=== PATIENT | male | born 1960 | race Two or more races ===

== ENCOUNTER 2018-02-04 10:30 | Emergency (ER) | payer MEDICARE, MEDICAID ==
[~2018-02-04] VITALS: Ht 170.2 cm; Wt 71.0 kg
[~2018-02-04 10:30] MED LIST: ASPI-1009 PO; ESOM20CA PO; HYDR-4069 PO; LANTUS SQ; LOSA25TA96 PO; METO10TA3 PO; NOR5T PO; SIMV20TA5 PO; VIT1TABL50 PO; ZOF4T PO
[2018-02-04 10:44] VITALS: BP 158/101
[2018-02-04] MEDS ORDERED: LIDOcaine 1.5% w/epinephrine 1:200,000 5ml ampul IJ ONE (12:55)
[2018-02-04] MEDS ORDERED: LIDOcaine 1% w/epiNEPHrine 1:200,000 30ml vial IJ ONE (13:00)
[2018-02-04] MEDS ORDERED: CEPH250T PO (13:30)
[2018-02-04] MEDS ORDERED: SULF1TAB49 PO (13:30)
== END 2018-02-04 13:45 | disposition home or self-care (01) ==
LOC: ER 10:31
DX: L02.511 Cutaneous abscess of right hand (principal); I10 Essential (primary) hypertension; J44.9 Chronic obstructive pulmonary disease, unspecified; E11.9 Type 2 diabetes mellitus without complications; Z98.890 Other specified postprocedural states; Z79.82 Long term (current) use of aspirin; Z79.4 Long term (current) use of insulin; Z79.899 Other long term (current) drug therapy
CPT/HCPCS: 26010; 73140; 99283; J3490; 99284

== ENCOUNTER 2018-03-19 12:03 | Outpatient (CLI) | payer MEDICARE, MEDICAID ==
[2018-03-19 11:38] VITALS: BP 134/70
[~2018-03-19 12:03] MED LIST changes: +CEPH250T PO
== END 2018-03-19 12:30 | disposition home or self-care (01) ==
LOC: ORTHO 12:03
PROVIDERS: ATTEND Nurse Practitioner Family
DX: L02.511 Cutaneous abscess of right hand (principal); I10 Essential (primary) hypertension; J44.9 Chronic obstructive pulmonary disease, unspecified; E11.9 Type 2 diabetes mellitus without complications; Z98.890 Other specified postprocedural states; Z79.82 Long term (current) use of aspirin; Z79.4 Long term (current) use of insulin; Z79.899 Other long term (current) drug therapy; Z89.431 Acquired absence of right foot
CPT/HCPCS: 99213

== ENCOUNTER 2018-04-02 09:34 | Emergency (ER) | payer MEDICARE, MEDICAID ==
[~2018-04-02] VITALS: Ht 170.2 cm; Wt 75.0 kg
[2018-04-02 10:08] LABS: BASOPHILS % (AUTO) 0.4 % (0-1); EOSINOPHILS # (AUTO) 0.1 X10'3 (0-0.9); EOSINOPHILS % (AUTO) 1.6 % (0-6); HEMATOCRIT 45.8 % (42.0-52.0); HEMOGLOBIN 15.5 g/dl (14.0-17.9); LYMPHOCYTES # (AUTO) 0.8 X10'3 (1.1-4.8); MEAN CORPUSCULAR HEMOGLOBIN 31.4 PG (27.0-31.0); MEAN CORPUSCULAR HGB CONC 33.8 g/dL (33.0-36.5); MEAN CORPUSCULAR VOLUME 92.7 FL (78-98); MEAN PLATELET VOLUME 9.5 FL (7.4-10.4); MONOCYTES # (AUTO) 0.5 X10'3 (0-0.9); MONOCYTES % (AUTO) 6.2 % (2-12); NEUTROPHILS # (AUTO) 7.1 X10'3 (1.8-7.7); NEUTROPHILS % (AUTO) 82.8 % (42-75); PLATELET COUNT 209 X10'3 (140-440); RED BLOOD COUNT 4.94 X10'6 (4.70-6.10); RED CELL DISTRIBUTION WIDTH 14.3 % (11.5-14.5); WHITE BLOOD COUNT 8.5 X10'3 (4.5-11.0)
[2018-04-02 10:16] LABS: ALANINE AMINOTRANSFERASE 18 U/L (12-78); ALBUMIN/GLOBULIN RATIO 1.1 (1.1-1.5); ALKALINE PHOSPHATASE 84 IU/L (46-116); ANION GAP 12 (8-16); ASPARTATE AMINO TRANSFERASE 18 U/L (10-37); BILIRUBIN,TOTAL 0.7 MG/DL (0.1-1.0); BLOOD UREA NITROGEN 17 MG/DL (7-18); BUN/CREATININE RATIO 13.8 (5.4-32.0); CALCIUM 9.7 MG/DL (8.5-10.1); CHLORIDE 98 MMOL/L (99-107); CREATININE 1.23 MG/DL (0.60-1.10); GLUCOSE 133 MG/DL (70-104); SODIUM 133 MMOL/L (135-145); TOTAL CARBON DIOXIDE 22.9 MMOL/L (24-32); TOTAL PROTEIN 7.5 G/DL (6.4-8.2); eGFR 61 ML/MIN
[2018-04-02 10:21] LABS: PARTIAL THROMBOPLASTIN TIME 25 SECONDS (22-32)
[2018-04-02] MEDS ORDERED: normal saline 1000ML IV soln IVB ONE (12:35)
[2018-04-02] MEDS ORDERED: morphine 4 MG/ML inj SYRINge IV ONE (12:35)
[2018-04-02] MEDS ORDERED: ondansetron/PF 4mg/2ml inj IV ONE (12:35)
[2018-04-02 14:03] VITALS: BP 182/98
[2018-04-02 14:16] LABS: LIPASE 103 U/L (73-393)
[2018-04-02 14:23] LABS: HEMOGLOBIN A1C 5.9 % (4.5-6.2)
[2018-04-02] MEDS ORDERED: ONDA8TAB6 PO (14:41)
[2018-04-02] MEDS ORDERED: PANT-47 PO (14:41)
== END 2018-04-02 15:00 | disposition home or self-care (01) ==
LOC: ER 09:35
DX: R10.13 Epigastric pain (principal); I10 Essential (primary) hypertension; J44.9 Chronic obstructive pulmonary disease, unspecified; R07.89 Other chest pain; R11.2 Nausea with vomiting, unspecified; E11.9 Type 2 diabetes mellitus without complications; F12.10 Cannabis abuse, uncomplicated; Z94.0 Kidney transplant status; Z79.82 Long term (current) use of aspirin; Z79.4 Long term (current) use of insulin
CPT/HCPCS: 36415; 71045; 74176; 80053; 83036; 83690; 84484; 85025; 85610; 85730; 87040; 93005; 96361; 96374; 96375; 99285; J2270; J2405; J7030; 99284

== ENCOUNTER 2018-04-16 08:55 | Outpatient (CLI) | payer MEDICARE, MEDICAID ==
[~2018-04-16] VITALS: Ht 170.2 cm; Wt 73.6 kg
[2018-04-16 08:33] VITALS: BP 137/77
[~2018-04-16 08:55] MED LIST changes: +ONDA8TAB6 PO; +PANT-47 PO
== END 2018-04-16 09:45 | disposition home or self-care (01) ==
LOC: ORTHO 08:55
PROVIDERS: ATTEND Nurse Practitioner Family
DX: S68.11 Complete traumatic metacarpophalangeal amputation of other and unspecified finger (principal); L02.511 Cutaneous abscess of right hand; F12.90 Cannabis use, unspecified, uncomplicated; E11.22 Type 2 diabetes mellitus with diabetic chronic kidney disease; I13.0 Hypertensive heart and chronic kidney disease with heart failure and stage 1 through stage 4 chronic kidney disease, or unspecified chronic kidney disease; N18.9 Chronic kidney disease, unspecified; I50.9 Heart failure, unspecified; J44.9 Chronic obstructive pulmonary disease, unspecified; Z72.89 Other problems related to lifestyle; Z79.82 Long term (current) use of aspirin; V89.2XXD Person injured in unspecified motor-vehicle accident, traffic, subsequent encounter
CPT/HCPCS: 73140; G0463

== ENCOUNTER 2018-05-13 13:10 | Day surgery (SDC) | payer MEDICARE, MEDICAID ==
[2018-05-06 11:03] LABS: BASOPHILS % (AUTO) 0.4 % (0-1); EOSINOPHILS # (AUTO) 0.1 X10'3 (0-0.9); EOSINOPHILS % (AUTO) 0.7 % (0-6); LYMPHOCYTES % (AUTO) 13.3 % (21-51); MEAN CORPUSCULAR HEMOGLOBIN 31.2 PG (27.0-31.0); MEAN CORPUSCULAR HGB CONC 33.6 g/dL (33.0-36.5); MEAN CORPUSCULAR VOLUME 92.7 FL (78-98); MEAN PLATELET VOLUME 8.5 FL (7.4-10.4); MONOCYTES # (AUTO) 0.7 X10'3 (0-0.9); MONOCYTES % (AUTO) 9.2 % (2-12); NEUTROPHILS # (AUTO) 5.6 X10'3 (1.8-7.7); NEUTROPHILS % (AUTO) 76.4 % (42-75); PRE OP HEMATOCRIT 42.1 % (42.0-52.0); PRE OP HEMOGLOBIN 14.2 g/dL (14.0-17.9); PRE OP PLATELET COUNT 273 X10'3 (140-440); RED BLOOD COUNT 4.54 X10'6 (4.70-6.10); RED CELL DISTRIBUTION WIDTH 14.4 % (11.5-14.5)
[2018-05-06 11:14] LABS: ALBUMIN 3.5 G/DL (3.4-5.0); ALKALINE PHOSPHATASE 90 IU/L (46-116); BLOOD UREA NITROGEN 15 MG/DL (7-18); BUN/CREATININE RATIO 12.5 (5.4-32.0); CALCIUM 9.2 MG/DL (8.5-10.1); CHLORIDE 99 MMOL/L (99-107); PRE OP ALT 19 U/L (30-65); PRE OP ANION GAP 8 (8-16); PRE OP AST 16 U/L (10-37); PRE OP BILIRUB, TOTAL 0.3 MG/DL (0.0-1.0); PRE OP GLUCOSE 73 MG/DL (70-104); PRE OP POTASSIUM 4.4 MMOL/L (3.4-5.1); PRE OP SODIUM 135 MMOL/L (135-145); TOTAL CARBON DIOXIDE 27.9 MMOL/L (24-32); eGFR 62 ML/MIN
[~2018-05-13] VITALS: Ht 170.2 cm; Wt 73.6 kg
[~2018-05-13 13:10] MED LIST changes: -CEPH250T PO; +DOCUMENT DATE & TIME OF BETA-BLOCKER PO ONE; -ESOM20CA PO; -HYDR-4069 PO; -LANTUS SQ; +LISI40TA4 PO; -LOSA25TA96 PO; +METO-384 PO; -METO10TA3 PO; +MYCO360T3 PO; -NOR5T PO; -ONDA8TAB6 PO; -PANT-47 PO; +PRED10TA23 PO; +TACR1CAP PO; -VIT1TABL50 PO; -ZOF4T PO; +albuterol 2.5 MG/3 ML nebule NEB ONE; +ceFAZolin 2gm in dextrose, iso 100 ML IV ONE; +famotidine 20mg tablet PO ONE; +normal saline 1000ml 1,000 ML IV SCH; +vancomycin inj 1,500 MG in normal saline 300ml IV soln IV ONE
[2018-05-13 13:30] VITALS: BP 121/70
[2018-05-13] MEDS ORDERED: ceFAZolin 1000mg inj ONE (13:58)
[2018-05-13] MEDS ORDERED: BUPIVAcaine/PF 2.5mg/ml (0.25%) 10ml vial ONE (13:58)
[2018-05-13] MEDS ORDERED: bacitracin 15gm ointment TP ONE (13:58)
[2018-05-13] MEDS ORDERED: ringers solution, lacted 1,000 ML IV SCH ×2 (15:34→16:38)
[2018-05-13] MEDS ORDERED: meperidine/PF 25mg/ml syringe IV PRN ×3 (15:35)
[2018-05-13] MEDS ORDERED: proCHLORperazine 10 MG/2 ml inj IV PRN (15:35)
[2018-05-13] MEDS ORDERED: morphine 4 MG/ML inj SYRINge IV PRN ×4 (15:35→16:40)
[2018-05-13] MEDS ORDERED: ondansetron/PF 4mg/2ml inj IV PRN ×2 (15:35→16:40)
[2018-05-13] MEDS ORDERED: midazolam 2 mg/2 ml injection ONE (16:07)
[2018-05-13] MEDS ORDERED: fentaNYL/PF 50MCG/1 ML 2ML syringe ONE (16:07)
[2018-05-13] MEDS ORDERED: LIDOcaine 1%/PF 5ML 10 MG/ML VIAL ONE (16:08)
[2018-05-13] MEDS ORDERED: propofol inj 20 ML IV ONE (16:17)
[2018-05-13] MEDS ORDERED: hydrALAZINE 20mg/ml inj. IV PRN (16:40)
[2018-05-13] MEDS ORDERED: fentaNYL/PF 50MCG/1 ML 2ML syringe IV PRN ×2 (16:40)
[2018-05-13] MEDS ORDERED: enalaprilat dihydrate 2.5mg/2ml vial IV PRN (16:40)
[2018-05-13 16:55] VITALS: BP 137/82
--- NOTE | 2018-05-13 16:55 | NUR ---
Received from OR via [facility] , accompanied by Anesthesiologist DR PERALES and report given by Anesthesiolgist. PT AWAKE, ALERT AND ORIENTED. DRSG TO RIGHT 5TH FINGER CDI. PT DENIES PAIN AND NAUSEA. ACCU CHECK [id number].
[2018-05-13 17:05] VITALS: BP 147/85
[2018-05-13 17:15] VITALS: BP 144/95
[2018-05-13 17:25] VITALS: BP 148/94
--- NOTE | 2018-05-13 17:45 | NUR ---
PT DISCHARGED TO HOME SAFELY VIA W/C. PT STATES UNDERSTANDING RE: ALL DC INSTRUCTIONS. PT DENIES PAIN AND ANY NEEDS. TOLERATING JUICE AND ABLE TO VOID W/O DIFFICULTY. ALL BELONGINGS W/ PT UPON DC TO HOME.
== END 2018-05-13 17:45 | disposition home or self-care (01) ==
LOC: PAS 13:10
PROVIDERS: ATTEND Orthopaedic Surgery
DX: M20.091 Other deformity of right finger(s) (principal); L02.511 Cutaneous abscess of right hand; Z79.899 Other long term (current) drug therapy; Z79.82 Long term (current) use of aspirin; E11.9 Type 2 diabetes mellitus without complications; I10 Essential (primary) hypertension; J44.9 Chronic obstructive pulmonary disease, unspecified; F32.9 Major depressive disorder, single episode, unspecified; Z94.0 Kidney transplant status; Z94.83 Pancreas transplant status; F12.90 Cannabis use, unspecified, uncomplicated; Z72.89 Other problems related to lifestyle; Z95.5 Presence of coronary angioplasty implant and graft
CPT/HCPCS: 26236; 36415; 80053; 82948; 85025; J0690; J2001; J2250; J2704; J3010; J3370; J3490; J7030; A7000; J7120

== ENCOUNTER 2019-07-11 10:15 | Emergency (ER) | payer MEDICARE, MEDICAID ==
[~2019-07-11] VITALS: Ht 170.2 cm; Wt 66.0 kg
[~2019-07-11 10:15] MED LIST changes: -DOCUMENT DATE & TIME OF BETA-BLOCKER PO ONE; +SIMV-42 PO; -SIMV20TA5 PO; -albuterol 2.5 MG/3 ML nebule NEB ONE; -ceFAZolin 2gm in dextrose, iso 100 ML IV ONE; -famotidine 20mg tablet PO ONE; -normal saline 1000ml 1,000 ML IV SCH; -vancomycin inj 1,500 MG in normal saline 300ml IV soln IV ONE
[2019-07-11] MEDS ORDERED: ondansetron/PF 4mg/2ml inj IV ONE (10:35)
[2019-07-11] MEDS ORDERED: normal saline 1000ML IV soln IVB ONE (10:35)
[2019-07-11 11:14] LABS: BASOPHILS % (AUTO) 0.3 % (0-1); EOSINOPHILS % (AUTO) 0.1 % (0-6); HEMATOCRIT 44.3 % (42.0-52.0); HEMOGLOBIN 14.8 g/dl (14.0-17.9); LYMPHOCYTES # (AUTO) 0.7 X10'3 (1.1-4.8); LYMPHOCYTES % (AUTO) 6.2 % (21-51); MEAN CORPUSCULAR HEMOGLOBIN 30.7 PG (27.0-31.0); MEAN CORPUSCULAR HGB CONC 33.5 g/dL (33.0-36.5); MEAN CORPUSCULAR VOLUME 91.7 FL (78-98); MEAN PLATELET VOLUME 9.2 FL (7.4-10.4); MONOCYTES % (AUTO) 9.5 % (2-12); NEUTROPHILS # (AUTO) 9.1 X10'3 (1.8-7.7); NEUTROPHILS % (AUTO) 83.9 % (42-75); PLATELET COUNT 241 X10'3 (140-440); RED BLOOD COUNT 4.84 X10'6 (4.70-6.10); RED CELL DISTRIBUTION WIDTH 13.6 % (11.5-14.5); WHITE BLOOD COUNT 10.9 X10'3 (4.5-11.0)
[2019-07-11 11:23] LABS: ALANINE AMINOTRANSFERASE 16 U/L (12-78); ALBUMIN/GLOBULIN RATIO 1.1 (1.1-1.5); ALKALINE PHOSPHATASE 83 IU/L (46-116); ANION GAP 9 (8-16); ASPARTATE AMINO TRANSFERASE 13 U/L (10-37); BILIRUBIN,TOTAL 0.8 MG/DL (0.1-1.0); BLOOD UREA NITROGEN 16 MG/DL (7-18); BUN/CREATININE RATIO 11.9 (5.4-32.0); CALCIUM 9.2 MG/DL (8.5-10.1); CHLORIDE 96 MMOL/L (99-107); CREATININE 1.34 MG/DL (0.60-1.10); GLUCOSE 114 MG/DL (70-104); SODIUM 131 MMOL/L (135-145); TOTAL CARBON DIOXIDE 26.1 MMOL/L (24-32); TOTAL PROTEIN 7.6 G/DL (6.4-8.2); eGFR 55 ML/MIN
[2019-07-11 12:03] VITALS: BP 134/67
== END 2019-07-11 12:05 | disposition home or self-care (01) ==
LOC: ER 10:16
DX: R11.2 Nausea with vomiting, unspecified (principal); I10 Essential (primary) hypertension; J44.9 Chronic obstructive pulmonary disease, unspecified; E11.9 Type 2 diabetes mellitus without complications; Z98.890 Other specified postprocedural states; Z79.82 Long term (current) use of aspirin; Z79.899 Other long term (current) drug therapy
CPT/HCPCS: 36415; 80053; 85025; 96361; 96374; 99284; J2405; J7030